=== PATIENT | female | born 1945 | race Caucasian/White ===

== ENCOUNTER 2020-11-18 12:53 | Inpatient (IN) | payer MEDICARE, OTHER ==
[~2020-11-18] VITALS: Ht 162.6 cm; Wt 82.7 kg
--- NOTE | 2020-11-18 12:56 | NUR ---
PATIENT ARRIVES WITH [facility] FLIGHT FROM [facility] WITH LEFT HIP PAIN FROM FEMORAL HIP FRACTURE. SHE IS HARD OF HEARING
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
[2020-11-18] MEDS ORDERED: METF500T17 PO (13:35)
[2020-11-18] MEDS ORDERED: OMEP-110 PO (13:35)
[2020-11-18] MEDS ORDERED: CALC-534 PO (13:35)
[2020-11-18] MEDS ORDERED: IBUP-1222 PO (13:35)
[2020-11-18] MEDS ORDERED: LISI-167 PO (13:35)
[2020-11-18] MEDS ORDERED: HYDR-3237 PO (13:35)
[2020-11-18] MEDS ORDERED: ASPI-963 PO (13:35)
[2020-11-18] MEDS ORDERED: OXYC5CAP2 PO (13:35)
[2020-11-18] MEDS ORDERED: BUSP15TA PO (13:35)
[2020-11-18] MEDS ORDERED: GLIP10TA13 PO (13:35)
[2020-11-18] MEDS ORDERED: ATOR-2 PO (13:35)
[2020-11-18] MEDS ORDERED: CLOP75TA PO (13:35)
[2020-11-18] MEDS ORDERED: GABA600T7 PO (13:35)
[2020-11-18] MEDS ORDERED: SULF1TAB23 PO (13:40)
[2020-11-18] MEDS ORDERED: COLE625T12 PO (13:40)
[2020-11-18] MEDS ORDERED: TRAM100T13 PO (13:40)
[2020-11-18] MEDS ORDERED: PERP4TAB6 PO (13:40)
[2020-11-18] MEDS ORDERED: MORPHINE SULFATE 4 MG/ML, 1ML ONE (13:54)
[2020-11-18] MEDS ORDERED: ONDANSETRON 2MG/ML, 2ML ONE (13:54)
[2020-11-18] MEDS ORDERED: MORPHINE SULFATE 4 MG/ML, 1ML IVPush PRN (14:00)
[2020-11-18] MEDS ORDERED: PLEASE ENTER ALLERGIES MC SCH (14:00)
[2020-11-18] MEDS ORDERED: ONDANSETRON 2MG/ML, 2ML IVPush ONE (14:00)
--- NOTE | 2020-11-18 14:45 | NUR ---
REPORT TO EFRA STEWART. PATIENT STATES PAIN IMPROVED. VSS. RTG
[2020-11-18 15:07] LABS: BASOPHILS % (AUTO) 0 % (0-1); EOSINOPHILS % (AUTO) 0 % (1-7); LYMPHOCYTES % (AUTO) 8 % (22-44); MEAN CORPUSCULAR HEMOGLOBIN 29.8 pg (27.0-34.8); MEAN CORPUSCULAR HGB CONC 34.9 g/dL (32.4-35.8); MEAN PLATELET VOLUME 8.3 fL (7.4-10.4); MONOCYTES % (AUTO) 5 % (2-9); NEUTROPHILS % (AUTO) 87 % (42-75); PLATELET COUNT 343 x10^3/uL (130-400); RED CELL DISTRIBUTION WIDTH 13.5 % (9.6-15.2)
[2020-11-18 15:19] LABS: ALBUMIN 3.9 g/dL (3.4-5.0); ANION GAP 11 mmol/L (5-15); CALCIUM 9.1 mg/dL (8.5-10.1); CHLORIDE 96 mmol/L (98-107); CREATININE 0.49 mg/dL (0.55-1.02)
[2020-11-18 15:22] VITALS: BP 125/85
[2020-11-18 15:22] LABS: INTERNATIONAL NORMALIZED RATIO 1.07 (0.93-1.1); PROTHROMBIN TIME 11.4 Seconds (9.6-11.5)
[2020-11-18] MEDS ORDERED: ONDANSETRON 2MG/ML, 2ML IVPush PRN (15:30)
[2020-11-18] MEDS ORDERED: MELATONIN 5 MG TABLET PO PRN (15:30)
[2020-11-18] MEDS ORDERED: hydrALAzine 20 MG/ML, 1ML IVPush PRN (15:30)
[2020-11-18] MEDS ORDERED: LORazepam 2 MG/ML, 1ML IVPush PRN (15:30)
[2020-11-18] MEDS ORDERED: TEMAZEPAM 15 MG CAPSULE PO PRN (15:30)
[2020-11-18] MEDS: BUSPIRONE 5 MG TABLET PO SCH ×2 (16:14→20:55)
[2020-11-18] MEDS ORDERED: PLEASE ENTER HEIGHT AND WEIGHT MC SCH (16:30)
[2020-11-18] MEDS ORDERED: HYDROmorphone 1 MG/ML, 1ML INJ IV PRN (16:30)
[2020-11-18] MEDS: INSULIN LISPRO 100 UNITS/ML, PEN SQ-INSULIN SCH ×2 (17:41→21:16)
[2020-11-18] MEDS: SODIUM CHLORIDE 0.9% 1,000 ML IV SCH (18:00)
[2020-11-18] MEDS: PLEASE ENTER WEIGHT MC SCH (18:26)
[2020-11-18 19:14] VITALS: BP 139/74
[2020-11-18] MEDS: ENOXAPARIN 40 MG/0.4 ML SQ SCH (20:54)
[2020-11-18] MEDS: metFORMIN 500 MG TABLET PO SCH (20:55)
[2020-11-18] MEDS: ATORVASTATIN 80 MG TABLET PO SCH (20:55)
[2020-11-18] MEDS: FAMOTIDINE 20 MG TABLET PO SCH (21:00)
[2020-11-18] MEDS: OXYcodone IR 5MG TABLET PO PRN (21:14)
[2020-11-19] MEDS: PLEASE ENTER WEIGHT MC SCH ×2 (00:30→08:07)
[2020-11-19 01:51] VITALS: BP 154/75
[2020-11-19] MEDS: SODIUM CHLORIDE 0.9% 1,000 ML IV SCH ×2 (03:21→13:55)
[2020-11-19] MEDS: OXYcodone IR 5MG TABLET PO PRN ×3 (05:16→22:24)
[2020-11-19 05:53] LABS: BASOPHILS % (AUTO) 1 % (0-1); EOSINOPHILS % (AUTO) 0 % (1-7); LYMPHOCYTES % (AUTO) 11 % (22-44); MEAN CORPUSCULAR HEMOGLOBIN 30.7 pg (27.0-34.8); MEAN PLATELET VOLUME 7.8 fL (7.4-10.4); MONOCYTES % (AUTO) 7 % (2-9); NEUTROPHILS % (AUTO) 81 % (42-75); PLATELET COUNT 284 x10^3/uL (130-400); RED BLOOD COUNT 4.22 x10^6/uL (3.82-5.3); RED CELL DISTRIBUTION WIDTH 13.9 % (9.6-15.2)
[2020-11-19 06:05] LABS: ANION GAP 8 mmol/L (5-15); CALCIUM 8.3 mg/dL (8.5-10.1); CHLORIDE 101 mmol/L (98-107)
[2020-11-19 06:06] LABS: CREATININE 0.45 mg/dL (0.55-1.02)
[2020-11-19] MEDS: BUSPIRONE 5 MG TABLET PO SCH ×4 (06:28→22:11)
[2020-11-19 07:10] VITALS: BP 125/57
[2020-11-19] MEDS: metFORMIN 500 MG TABLET PO SCH ×2 (08:04→22:11)
[2020-11-19] MEDS: ASPIRIN 81 MG TABLET EC PO SCH (08:04)
[2020-11-19] MEDS: FAMOTIDINE 20 MG TABLET PO SCH (08:04)
[2020-11-19] MEDS: OMEPRAZOLE 20 MG CAPSULE.DR PO SCH (08:04)
[2020-11-19] MEDS: GABAPENTIN 300 MG CAPSULE PO SCH (08:04)
[2020-11-19] MEDS: INSULIN LISPRO 100 UNITS/ML, PEN SQ-INSULIN SCH ×4 (08:04→22:21)
[2020-11-19] MEDS: LISINOPRIL 10 MG TABLET PO SCH (08:04)
[2020-11-19] MEDS: COLESEVELAM 625 MG TABLET PO SCH (08:04)
[2020-11-19] MEDS: PERPHENAZINE 4 MG TABLET PO SCH (08:04)
[2020-11-19] MEDS: CALCIUM/VITAMIN D3 250-125 TABLET PO SCH (08:05)
[2020-11-19] MEDS: HYDROmorphone 1 MG/ML, 1ML INJ IV PRN ×2 (08:17→12:13)
[2020-11-19] MEDS ORDERED: OXYcodone IR 5MG TABLET PO SCH (09:00)
[2020-11-19] MEDS ORDERED: HYDROcodone/APAP 5/325 TABLET PO SCH (09:00)
[2020-11-19 14:20] VITALS: BP 142/60
[2020-11-19 18:38] VITALS: BP 140/87
[2020-11-19] MEDS: ENOXAPARIN 40 MG/0.4 ML SQ SCH (22:10)
[2020-11-19] MEDS: ATORVASTATIN 80 MG TABLET PO SCH (22:11)
[2020-11-20] MEDS: SODIUM CHLORIDE 0.9% 1,000 ML IV SCH (01:21)
[2020-11-20 01:32] VITALS: BP 117/74
[2020-11-20] MEDS: OXYcodone IR 5MG TABLET PO PRN ×4 (04:48→20:57)
[2020-11-20] MEDS: BUSPIRONE 5 MG TABLET PO SCH ×4 (04:49→20:57)
[2020-11-20] MEDS: INSULIN LISPRO 100 UNITS/ML, PEN SQ-INSULIN SCH ×4 (06:30→21:45)
[2020-11-20 06:54] LABS: ANION GAP 10 mmol/L (5-15); CALCIUM 8.2 mg/dL (8.5-10.1); CHLORIDE 102 mmol/L (98-107); CREATININE 0.32 mg/dL (0.55-1.02)
[2020-11-20] MEDS ORDERED: POTASSIUM CHLORIDE 20 MEQ TAB.ER.PRT PO ONE (07:30)
[2020-11-20 07:35] VITALS: BP 141/77
[2020-11-20] MEDS: OMEPRAZOLE 20 MG CAPSULE.DR PO SCH (08:08)
[2020-11-20] MEDS: GABAPENTIN 300 MG CAPSULE PO SCH (08:08)
[2020-11-20] MEDS: COLESEVELAM 625 MG TABLET PO SCH (08:08)
[2020-11-20] MEDS: metFORMIN 500 MG TABLET PO SCH ×2 (08:08→20:57)
[2020-11-20] MEDS: ASPIRIN 81 MG TABLET EC PO SCH (08:08)
[2020-11-20] MEDS: CALCIUM/VITAMIN D3 250-125 TABLET PO SCH (08:09)
[2020-11-20] MEDS: LISINOPRIL 10 MG TABLET PO SCH (08:09)
[2020-11-20] MEDS: ACETAMINOPHEN 325 MG TABLET PO PRN (08:11)
[2020-11-20] MEDS: PERPHENAZINE 4 MG TABLET PO SCH (08:12)
[2020-11-20 09:07] LABS: INTERNATIONAL NORMALIZED RATIO 1.18 (0.93-1.1); PROTHROMBIN TIME 12.5 Seconds (9.6-11.5)
[2020-11-20] MEDS: HYDROmorphone 1 MG/ML, 1ML INJ IV PRN (09:21)
[2020-11-20 14:07] VITALS: BP 115/57
[2020-11-20 19:54] VITALS: BP 152/68
[2020-11-20] MEDS: DOCUSATE 100 MG CAPSULE PO PRN (20:56)
[2020-11-20] MEDS: FAMOTIDINE 20 MG TABLET PO SCH (20:57)
[2020-11-20] MEDS: ATORVASTATIN 80 MG TABLET PO SCH (20:57)
[2020-11-20] MEDS: ENOXAPARIN 40 MG/0.4 ML SQ SCH (20:58)
[2020-11-21] MEDS: ACETAMINOPHEN 325 MG TABLET PO PRN (00:48)
[2020-11-21] MEDS: OXYcodone IR 5MG TABLET PO PRN ×2 (00:48→13:33)
[2020-11-21 02:03] VITALS: BP 123/64
[2020-11-21] MEDS: BUSPIRONE 5 MG TABLET PO SCH ×4 (05:58→21:00)
[2020-11-21 06:45] LABS: BASOPHILS % (AUTO) 1 % (0-1); EOSINOPHILS % (AUTO) 1 % (1-7); LYMPHOCYTES % (AUTO) 14 % (22-44); MEAN CORPUSCULAR HEMOGLOBIN 30.8 pg (27.0-34.8); MEAN PLATELET VOLUME 7.5 fL (7.4-10.4); MONOCYTES % (AUTO) 10 % (2-9); NEUTROPHILS % (AUTO) 74 % (42-75); PLATELET COUNT 257 x10^3/uL (130-400); RED BLOOD COUNT 3.76 x10^6/uL (3.82-5.3); RED CELL DISTRIBUTION WIDTH 13.7 % (9.6-15.2)
[2020-11-21 06:55] VITALS: BP 114/63
[2020-11-21 06:57] LABS: ALANINE AMINOTRANSFERASE 16 U/L (12-78); ALBUMIN 2.7 g/dL (3.4-5.0); ANION GAP 3 mmol/L (5-15); CALCIUM 8.5 mg/dL (8.5-10.1); CHLORIDE 104 mmol/L (98-107)
[2020-11-21 06:59] LABS: ALKALINE PHOSPHATASE 23 U/L (45-117); BILIRUBIN,TOTAL 0.6 mg/dL (0.2-1.0); CREATININE 0.38 mg/dL (0.55-1.02); TOTAL PROTEIN 5.7 g/dL (6.4-8.2)
[2020-11-21] MEDS ORDERED: MIDAZOLAM 1 MG/ML, 2ML ONE (07:19)
[2020-11-21] MEDS ORDERED: FENTANYL PF 250 MCG/5ML ONE (07:19)
[2020-11-21] MEDS ORDERED: PROPOFOL 10 MG/ML, 20ML ONE (07:20)
[2020-11-21] MEDS ORDERED: CEFAZOLIN 1,000 MG ONE ×2 (07:21)
[2020-11-21] MEDS ORDERED: SUCCINYLCHOLINE 20 MG/ML, 10ML ONE (07:21)
[2020-11-21] MEDS: INSULIN LISPRO 100 UNITS/ML, PEN SQ-INSULIN SCH ×4 (07:43→21:31)
[2020-11-21] MEDS ORDERED: HYDROmorphone 1 MG/ML, 1ML INJ IVPush PRN (09:00)
[2020-11-21] MEDS ORDERED: ONDANSETRON 2MG/ML, 2ML IVPush PRN (09:00)
[2020-11-21] MEDS ORDERED: PROMETHAZINE 25 MG/ML, 1ML IVPush PRN (09:00)
[2020-11-21] MEDS: GABAPENTIN 300 MG CAPSULE PO SCH (09:00)
[2020-11-21] MEDS: metFORMIN 500 MG TABLET PO SCH ×2 (09:00→21:31)
[2020-11-21] MEDS: CALCIUM/VITAMIN D3 250-125 TABLET PO SCH (09:00)
[2020-11-21] MEDS ORDERED: hydrALAzine 20 MG/ML, 1ML IV PRN (09:00)
[2020-11-21] MEDS ORDERED: OXYcodone 5 MG/5 ML ORAL.SOL UDC PO PRN (09:00)
[2020-11-21] MEDS ORDERED: DIAZEPAM 5 MG/ML, 2ML IVPush PRN (09:00)
[2020-11-21] MEDS ORDERED: ONDANSETRON 2MG/ML, 2ML ONE (09:13)
[2020-11-21] MEDS ORDERED: FENTANYL PF 100 MCG/2ML ONE (09:40)
[2020-11-21] MEDS: FENTANYL PF 100 MCG/2ML IV PRN ×4 (09:41→10:00)
[2020-11-21] MEDS ORDERED: KETOROLAC 30 MG/1 ML ONE (09:58)
[2020-11-21] MEDS: ASPIRIN 81 MG TABLET EC PO SCH (10:11)
[2020-11-21] MEDS ORDERED: LABETALOL 5MG/ML, 20ML ONE (10:18)
[2020-11-21] MEDS: LABETALOL 5MG/ML, 20ML IV PRN ×2 (10:20→10:25)
[2020-11-21] MEDS ORDERED: KETOROLAC 15 MG/1ML IVPush ONE (10:30)
[2020-11-21] MEDS: OMEPRAZOLE 20 MG CAPSULE.DR PO SCH (11:07)
[2020-11-21] MEDS: COLESEVELAM 625 MG TABLET PO SCH (11:07)
[2020-11-21] MEDS: LISINOPRIL 10 MG TABLET PO SCH (11:07)
[2020-11-21] MEDS: PERPHENAZINE 4 MG TABLET PO SCH (11:14)
[2020-11-21] MEDS ORDERED: CEFAZOLIN PMX 1GM/50ML 50 ML IV SCH (11:30)
[2020-11-21 15:00] VITALS: BP 129/76
[2020-11-21] MEDS: CEFAZOLIN PMX 1GM/50ML 50 ML IV SCH (17:39)
[2020-11-21] MEDS: KETOROLAC 30 MG/1 ML IV SCH (18:14)
[2020-11-21 18:15] VITALS: BP 123/59
[2020-11-21] MEDS: ENOXAPARIN 40 MG/0.4 ML SQ SCH (21:30)
[2020-11-21] MEDS: ATORVASTATIN 80 MG TABLET PO SCH (21:31)
[2020-11-21] MEDS: FAMOTIDINE 20 MG TABLET PO SCH (21:31)
[2020-11-22] VITALS: BP 103/57
[2020-11-22] MEDS: CEFAZOLIN PMX 1GM/50ML 50 ML IV SCH ×2 (01:43→09:25)
[2020-11-22] MEDS: KETOROLAC 30 MG/1 ML IV SCH ×2 (01:43→10:33)
[2020-11-22 03:49] VITALS: BP 133/81
[2020-11-22] MEDS: BUSPIRONE 5 MG TABLET PO SCH (04:44)
[2020-11-22] MEDS ORDERED: LACTATED RINGERS 500 ML IVBOLUS ONE (05:00)
[2020-11-22 06:46] VITALS: BP 140/84
[2020-11-22] MEDS: metFORMIN 500 MG TABLET PO SCH ×3 (07:12→20:34)
[2020-11-22] MEDS: ASPIRIN 81 MG TABLET EC PO SCH ×2 (07:12→09:15)
[2020-11-22] MEDS: GABAPENTIN 300 MG CAPSULE PO SCH ×2 (07:12→09:16)
[2020-11-22] MEDS: COLESEVELAM 625 MG TABLET PO SCH ×2 (07:13→09:19)
[2020-11-22] MEDS: LISINOPRIL 10 MG TABLET PO SCH ×2 (07:13→09:15)
[2020-11-22] MEDS: CALCIUM/VITAMIN D3 250-125 TABLET PO SCH ×2 (07:13→09:18)
[2020-11-22] MEDS: OMEPRAZOLE 20 MG CAPSULE.DR PO SCH ×2 (07:13→09:17)
[2020-11-22] MEDS: PERPHENAZINE 4 MG TABLET PO SCH ×2 (07:13→09:25)
[2020-11-22] MEDS: CLOPIDOGREL 75 MG TABLET PO SCH ×2 (07:13→09:15)
[2020-11-22] MEDS: INSULIN LISPRO 100 UNITS/ML, PEN SQ-INSULIN SCH ×4 (07:20→20:46)
[2020-11-22] MEDS: POLYETHYLENE GLYCOL 17 GM PACKET PO PRN (11:36)
[2020-11-22 12:30] VITALS: BP 135/83
[2020-11-22] MEDS: BISACODYL 10 MG SUPP PR PRN (13:49)
[2020-11-22 18:38] VITALS: BP 130/75
[2020-11-22] MEDS: DOCUSATE 100 MG CAPSULE PO PRN (20:34)
[2020-11-22] MEDS: ATORVASTATIN 80 MG TABLET PO SCH (20:34)
[2020-11-22] MEDS: FAMOTIDINE 20 MG TABLET PO SCH (20:34)
[2020-11-22] MEDS: ENOXAPARIN 40 MG/0.4 ML SQ SCH (20:34)
[2020-11-22] MEDS: ACETAMINOPHEN 325 MG TABLET PO PRN (20:46)
[2020-11-23 00:22] VITALS: BP 104/65
[2020-11-23 05:11] LABS: BASOPHILS % (AUTO) 1 % (0-1); EOSINOPHILS % (AUTO) 1 % (1-7); LYMPHOCYTES % (AUTO) 10 % (22-44); MEAN CORPUSCULAR HEMOGLOBIN 30.3 pg (27.0-34.8); MEAN CORPUSCULAR HGB CONC 35.9 g/dL (32.4-35.8); MEAN PLATELET VOLUME 7.7 fL (7.4-10.4); MONOCYTES % (AUTO) 14 % (2-9); NEUTROPHILS % (AUTO) 75 % (42-75); PLATELET COUNT 320 x10^3/uL (130-400); RED BLOOD COUNT 2.83 x10^6/uL (3.82-5.3); RED CELL DISTRIBUTION WIDTH 13.6 % (9.6-15.2)
[2020-11-23] MEDS: INSULIN LISPRO 100 UNITS/ML, PEN SQ-INSULIN SCH ×2 (07:00→11:39)
[2020-11-23 07:25] VITALS: BP 114/75
[2020-11-23] MEDS: LISINOPRIL 10 MG TABLET PO SCH (08:25)
[2020-11-23] MEDS: DOCUSATE 100 MG CAPSULE PO PRN (08:25)
[2020-11-23] MEDS: ASPIRIN 81 MG TABLET EC PO SCH (08:25)
[2020-11-23] MEDS: GABAPENTIN 300 MG CAPSULE PO SCH (08:25)
[2020-11-23] MEDS: COLESEVELAM 625 MG TABLET PO SCH (08:25)
[2020-11-23] MEDS: OMEPRAZOLE 20 MG CAPSULE.DR PO SCH (08:25)
[2020-11-23] MEDS: metFORMIN 500 MG TABLET PO SCH (08:26)
[2020-11-23] MEDS: CALCIUM/VITAMIN D3 250-125 TABLET PO SCH (08:26)
[2020-11-23] MEDS: CLOPIDOGREL 75 MG TABLET PO SCH (08:26)
[2020-11-23] MEDS: POLYETHYLENE GLYCOL 17 GM PACKET PO PRN (08:32)
[2020-11-23] MEDS: BISACODYL 10 MG SUPP PR PRN (08:32)
[2020-11-23] MEDS ORDERED: TRAM50TA2 PO (09:26)
[2020-11-23] MEDS: PERPHENAZINE 4 MG TABLET PO SCH (11:38)
[2020-11-23 12:12] VITALS: BP 127/80
== END 2020-11-23 15:00 | DRG 522 ==
LOC: ED 14:34 → 4NE 14:56 → ED 16:05 → 4NE 16:06
PROVIDERS: ADMIT Internal Medicine; ATTEND Hospitalist
PROC: 0SRS0J9 Replacement of Left Hip Joint, Femoral Surface with Synthetic Substitute, Cemented, Open Approach (ICD-10-PCS; principal; 2020-11-21 08:30)
DX: S72.002A Fracture of unspecified part of neck of left femur, initial encounter for closed fracture (principal); E87.1 Hypo-osmolality and hyponatremia; D62 Acute posthemorrhagic anemia; S72.032A Displaced midcervical fracture of left femur, initial encounter for closed fracture; E11.9 Type 2 diabetes mellitus without complications; E78.5 Hyperlipidemia, unspecified; Z20.822 Contact with and (suspected) exposure to COVID-19; E87.8 Other disorders of electrolyte and fluid balance, not elsewhere classified; G89.29 Other chronic pain; I10 Essential (primary) hypertension; M54.30 Sciatica, unspecified side; Z66 Do not resuscitate; F32.9 Major depressive disorder, single episode, unspecified; F41.9 Anxiety disorder, unspecified; K21.9 Gastro-esophageal reflux disease without esophagitis; K58.9 Irritable bowel syndrome, unspecified; M54.32 Sciatica, left side; W01.0XXA Fall on same level from slipping, tripping and stumbling without subsequent striking against object, initial encounter; Y92.009 Unspecified place in unspecified non-institutional (private) residence as the place of occurrence of the external cause; Z79.02 Long term (current) use of antithrombotics/antiplatelets; Z86.73 Personal history of transient ischemic attack (TIA), and cerebral infarction without residual deficits; Z90.49 Acquired absence of other specified parts of digestive tract; Z79.899 Other long term (current) drug therapy; Z79.891 Long term (current) use of opiate analgesic; Z79.01 Long term (current) use of anticoagulants; Y93.89 Activity, other specified; Y99.8 Other external cause status; Z79.82 Long term (current) use of aspirin; Z63.4 Disappearance and death of family member
CPT/HCPCS: 36415; 71045; 80048; 80053; 82040; 82962; 83735; 84100; 85018; 85025; 85610; 85730; 87635; 93005; 96374; 96375; 99285; C1713; G0378; J0690; J1170; J1650; J1885; J2250; J2405; J2704; J3010; J7120; C1762; C1776; J0330; J1815; J2270; J7030